=== PATIENT | male | born 1960 | race Hispanic/Latino ===

== ENCOUNTER 2022-04-20 16:03 | Emergency (ER) | payer OTHER ==
[~2022-04-20] VITALS: Ht 162.6 cm; Wt 98.9 kg
[2022-04-20] MEDS ORDERED: CEPHALEXIN 500 MG CAPSULE ONE (17:08)
[2022-04-20] MEDS ORDERED: MUPI22OI2 TP (17:27)
[2022-04-20] MEDS ORDERED: CEPH500B PO (17:27)
[2022-04-20 17:28] VITALS: BP 143/79
[2022-04-20] MEDS ORDERED: BACITRACIN 28.4 GM OINT TP ONE (17:30)
== END 2022-04-20 17:40 | disposition home or self-care (01) ==
LOC: EDH 16:03
DX: T25.222A Burn of second degree of left foot, initial encounter (principal); E10.9 Type 1 diabetes mellitus without complications; E78.00 Pure hypercholesterolemia, unspecified; I10 Essential (primary) hypertension; Z86.73 Personal history of transient ischemic attack (TIA), and cerebral infarction without residual deficits; X08.8XXA Exposure to other specified smoke, fire and flames, initial encounter; Y93.89 Activity, other specified; Y92.89 Other specified places as the place of occurrence of the external cause; Y99.8 Other external cause status
CPT/HCPCS: 16020